=== PATIENT | male | born 1995 | race Hispanic/Latino ===

== ENCOUNTER 2022-05-14 10:37 | Emergency (ER) | payer SELFPAY | END 2022-05-14 12:37 | LOC: ERS 10:37 | DX: S63.501A Unspecified sprain of right wrist, initial encounter (principal); F10.129 Alcohol abuse with intoxication, unspecified; X58.XXXA Exposure to other specified factors, initial encounter | CPT/HCPCS: 99283 ==

== ENCOUNTER 2023-09-21 08:24 | Emergency (ER) | payer SELFPAY | END 2023-09-21 08:53 | LOC: ERS 08:24 | DX: Z02.89 Encounter for other administrative examinations (principal) | CPT/HCPCS: 99283 ==